=== PATIENT | female | born 1965 | race Caucasian/White ===

== ENCOUNTER → 2024-12-26 | Outpatient (CLI) | payer OTHER, MEDICAID, SELFPAY ==
--- NOTE | 2024-12-26 15:55 | XR_ITS ---
Examination: Hand, right 3 views Technique: Hand AP, oblique, lateral 3 views Date and time of exam: December 26, 2024 1603 hours INDICATIONS: Injury to the hand today with fifth digit pain. FINDINGS: Severe osteopenia No acute fractures No dislocations No foreign body IMPRESSION: No acute fracture
--- NOTE | 2024-12-26 15:55 | XR_ITS ---
Examination: Fingers, right hand fifth digit 3 views Technique: AP, oblique, lateral views right hand fifth digit 3 views. Exam date and time: December 26, 2024 1603 hours INDICATIONS: Injury to the hand today with fifth digit pain. FINDINGS: Prominent osteopenia. No acute fracture No dislocation IMPRESSION: No acute fracture
== END | disposition home or self-care (01) ==
PROVIDERS: PCP Nurse Practitioner Family; Referring Provider Nurse Practitioner Family; Visit Provider Nurse Practitioner Family
DX: M79.644 Pain in right finger(s) (principal); Z87.81 Personal history of (healed) traumatic fracture
CPT/HCPCS: 73130; 73140

== ENCOUNTER → 2025-01-16 | Outpatient (CLI) | payer OTHER, MEDICAID, SELFPAY ==
--- NOTE | 2025-01-16 08:30 | XR_ITS ---
Examination: Screening digital mammography, bilateral Computer aided detection 3-D breast Tomosynthesis, bilateral Date and time of exam: January 16, 2025 0810 hours Compared to mammograms dating to March 31, 2016 Indication: Screening Technique: Nonmagnified MLO, CC views of the breasts to been obtained, reconstructed from 3-D Tomosynthesis images. R2 computer aided detection program utilized for evaluation of suspicious masses and/or abnormal calcifications. 3-D Tomosynthesis images obtained. Findings: The breasts are heterogeneously dense, which may obscure small masses 10 mm focal asymmetry 12:00 position left breast Benign calcifications Impression: BI-RADS Category 0: Incomplete: Need additional imaging evaluation 10 mm focal asymmetry 12:00 position left breast, recommend follow-up spot tomographic views of this asymmetry as well as bilateral breast sonography to complete the workup
== END | disposition home or self-care (01) ==
LOC: CDIM 08:03
PROVIDERS: Referring Provider Nurse Practitioner Family; Visit Provider Nurse Practitioner Family
DX: Z12.31 Encounter for screening mammogram for malignant neoplasm of breast (principal); N64.89 Other specified disorders of breast; R92.8 Other abnormal and inconclusive findings on diagnostic imaging of breast
CPT/HCPCS: 77063; 77067

== ENCOUNTER 2025-02-11 13:03 | Outpatient (AMB) | payer OTHER, MEDICAID, SELFPAY ==
[2025-02-11 13:20] VITALS: BP 137/81; PULSE 67; RESP 14; TEMP 35.9; O2SAT 97; BMI 28.9
--- NOTE | 2025-02-11 13:20 | GYNCLNT_ITS ---
Vital Signs 02/11/25 13:20 Height 1.6 m Height Method Stated Weight 74.162 kg Weight Measurement Method Standing Scale BMI 28.9 BP 137/81 H Blood Pressure Source Automatic Cuff Blood Pressure Location Left Upper Arm Position Sitting Respiration 14 Pulse 67 Pulse Source Monitor Temp 96.7 F L Temp Source Oral Pulse Oximetry (%) 97 Oxygen Delivery Method Room Air Allergies/Home Meds Allergies & Medications Allergies No Known Allergies Allergy (Verified 02/11/25 13:22) Intake Visit Data Collection New Patient or Established: Established Patient (seen at [facility] within 3 years) Reason for Visit:: ANNUAL WELLNESS Seen by Clinical Staff ONLY (RN/MA): No Parking Control Officer Required: No Do You Feel Safe at Home: Yes Authorities Contacted: N/A PCP or OBGYN visit in last 3 months: Yes Hx Now: No Are you currently on any form of Control: Yes Pain Present Currently: No Pain Scale Used: Moscoso-Owens/Numerical Pain scale:: 0 Smoking Status Smoking Status: Never smoker 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 1. Little interest or pleasure in doing things: not at all 2. Feeling down, depressed, or hopeless: not at all Total score: 0 PHQ-9 3. Trouble falling or staying asleep, or sleeping too much: Not at all 4. Feeling tired or having little energy: Not at all 5. Poor appetite or overeating: Not at all 6. Feeling bad about yourself - or that you are a failure or have let yourself or your family down: Not at all 7. Trouble concentrating on things, such as reading the newspaper or watching television: Not at all 8. Moving or speaking so slowly that other people could have noticed? - Or the opposite - being so fidgety or restless that you have been moving around a lot more than usual: not at all 9. Thoughts that you would be better off or of hurting yourself in some way: Not at all Total score: 0 Source: Developed by Drs. Adriel Tan, Lois Champion, Mati Singer and colleagues, with an educational hortencia from [employer]. 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 [place] Patient has been in menopause for 3 years. Patient smokes cigarettes occasionally. She had stopped smoking and for the last year had started smoking occasionally. Denies drugs and alcohol. Patient denies any existence of chronic illnesses. And she denies any surgeries. 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 Her mammo was done and she told me that she had a diagnostic. So patient will follow-up on the [facility] [place] with the practitioner there for results Review of Systems Review of Systems Systems Reviewed: All systems reviewed, normal except as documented Exam Narrative Physical exam: Euthyroid. Normal heart rate and rhythm. Lungs are clear no wheezes. Both breasts are soft, symmetrical. Nipples intact no discharge. No skin changes. No masses palpated in either breast. Abdomen is soft and nontender. Perineum intact no lesions noted. Vagina was pale pink, no unusual discharge. Good rugae. Parous cervix. No inflammation ,no lesions ,no discharge noted. No cervical motion tenderness noted uterus normal size and shape mobile and nontender no mass General Limitations: no limitations General Appearance: alert, in no apparent distress, comfortable, cooperative, healthy appearing, well developed and well groomed Head Head exam: atraumatic, normocephalic and normal inspection ENT ENT exam: Present normal exam, normal oropharynx and mucous membranes moist Resp Respiratory exam: Present normal lung sounds bilaterally Card Cardiovascular exam: Present regular rate, normal rhythm and normal heart sounds Abdominal Abdominal exam: Present soft and normal bowel sounds Office Procedures [facility] LOC & Office Proc's Nursing/Assessment Patient Status: Established Patient OB Clinic Nursing Assessment: Medication Reconciliation, Update PMH in EMR and Vital Signs OB Clinic Coordination of Care: Complex Care and Chronic Disease 1-5, Consent,records obtained, informed consent, Education Simp Pt/Fam, Lab and Aretha ging orders, Results/Orders obtained and Staff clarify orders Miscellaneous Interventions: Culture Specimen Collection and Pelvic/Pap Smear Set up Established Patient Charge Established Patient Point Assignment: 140 Established Patient Point Charge: EP Level 4 (120-155) In Clinic Bedside tests/procedures Pap Smear: Yes Assessment & Plan Diagnosis / Problem List (1) Encounter for Papanicolaou smear of vagina as part of routine gynecological examination: Status: Acute (2) Encounter for Pap smear of cervix with HPV DNA cotesting: Status: Acute Plan Pap smear today. Discussed follow-up Pap smears is every 5 years if patient has never had an abnormal which she has not. Discussed self breast exam. Avoid caffeine products. Vitamin E daily. Discussed diet and exercise. 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 Patient gave verbal consent for the Pap smear. Questions and answers were addressed. And I discussed the Pap procedure as we went along. Papsmear completed: yes
== END 2025-02-11 13:55 | disposition home or self-care (01) ==
LOC: HODSOBC 13:03
PROVIDERS: Supervising Provider Advanced Practice Midwife; Visit Provider Advanced Practice Midwife
DX: Z01.419 Encounter for gynecological examination (general) (routine) without abnormal findings (principal); Z11.51 Encounter for screening for human papillomavirus (HPV); F17.210 Nicotine dependence, cigarettes, uncomplicated; Z78.0 Asymptomatic menopausal state
CPT/HCPCS: 99214; Q0091; G0463

== ENCOUNTER → 2025-04-02 | Outpatient (CLI) | payer BC, MEDICAID, SELFPAY ==
--- NOTE | 2025-04-02 12:30 | XR_ITS ---
Examination: Breast ultrasound complete, bilateral Date and time of exam: April 02, 2025, 1215 hours INDICATIONS: Mammogram 01/16/2025 10 mm focal asymmetry 12 o'clock position left breast Technique: Real-time grayscale ultrasonographic imaging bilateral breasts, including all 4 quadrants as well as nipple retroareolar and axillary regions. Findings: Sonographic images right breast No cystic or solid mass 3.8 cm right axillary lymph node Sonographic images left breast 12:00 cyst 4 x 4 mm 12:00 probable glandular tissue 13 x 13 mm 22 mm left axillary lymph node IMPRESSION: BI-RADS Category 3: Probably benign findings Recommend 1 additional 6-month left breast sonogram follow-up to document stability of probable glandular tissue in the 12 o'clock position left breast
--- NOTE | 2025-04-02 13:30 | XR_ITS ---
Examination: Diagnostic digital mammography, unilateral, le left Computer aided detection 3-D breast Tomosynthesis, unilateral Date and time of exam: April 02, 2025, 1241 hours INDICATIONS: Mammogram 01/16/2025 10 mm focal asymmetry 12 o'clock position left breast Technique: Nonmagnified MLO, CC views of the le left breast have been obtained, reconstructed from 3-D Tomosynthesis images. R2 computer aided detection program utilized for evaluation of suspicious masses and/or abnormal calcifications. 3-D Tomosynthesis images obtained. Findings: The breast is heterogeneously dense, which may obscure small masses Focal asymmetry is depicted on the spot compression view nipple level left breast cc view Impression: BI-RADS Category 3: Probably benign findings 1 additional 6-month left mammogram follow-up is needed to document stability of circumscribed 7 mm nodule nipple level left breast on the spot compression cc view *
== END | disposition home or self-care (01) ==
PROVIDERS: PCP Nurse Practitioner Family; Referring Provider Nurse Practitioner Family; Visit Provider Nurse Practitioner Family
DX: R92.332 Mammographic heterogeneous density, left breast (principal); N63.20 Unspecified lump in the left breast, unspecified quadrant; R92.8 Other abnormal and inconclusive findings on diagnostic imaging of breast
CPT/HCPCS: 76641; 77061; 77065; G0279